=== PATIENT | male | born 1955 | race Two or more races ===

== ENCOUNTER 2017-12-02 11:25 | Outpatient (CLI) | payer MEDICARE | END 2017-12-02 11:26 | disposition EMS.NT | LOC: EMS 11:25 | PROVIDERS: ATTEND Surgery | DX: R53.1 Weakness (principal) ==

== ENCOUNTER 2019-04-16 09:44 | Outpatient (CLI) | payer MEDICARE ==
--- NOTE | 2019-04-16 11:27 | XRAY Report ---
Reason: OTHER NONSPECIFIC ABNORMAL FINDING OF LUNG FIELD Procedure Date: 04/16/2019 Accession Number: [id number] / [id number] Procedure: XRN - Chest 2 View X-Ray CPT Code: 31708 FULL RESULT: EXAM: CHEST RADIOGRAPHY EXAM DATE: 04/16/2019 10:00 AM. CLINICAL HISTORY: Other nonspecific abnormal finding of lung field. COMPARISON: 11/21/2015 12:49 PM. TECHNIQUE: 2 views. FINDINGS: Lungs/Pleura: The prior pleural-based patchy opacity in the lateral right upper lobe and the masslike enlarged right upper lobe pulmonary hilum have been significantly decreased with small residual pleural based patchy opacity. There is a new small right pleural effusion. No new focal opacities evident. No left pleural effusion. No pneumothorax. Mediastinum: Heart and mediastinal contours are unremarkable. Other: None. IMPRESSION: 1. Interval significant decrease in size of the right upper lobe patchy opacity and the enlarged right upper pulmonary hilum. 2. New small right pleural effusion without new pulmonary opacity. RADIA
== END 2019-04-16 09:45 | disposition home or self-care (01) ==
LOC: DI.N 09:44
PROVIDERS: ATTEND Internal Medicine
DX: R91.8 Other nonspecific abnormal finding of lung field (principal); J90 Pleural effusion, not elsewhere classified
CPT/HCPCS: 71046

== ENCOUNTER 2019-06-13 14:24 | Outpatient (CLI) | payer MEDICARE, MEDICAID ==
--- NOTE | 2019-06-13 14:58 | XRAY Report ---
Reason: CHEST PAIN, UNSPECIFIED Procedure Date: 06/13/2019 Accession Number: [id number] / [id number] Procedure: XR - Chest 2 View X-Ray CPT Code: 63889 FULL RESULT: EXAM: CHEST RADIOGRAPHY EXAM DATE: 06/13/2019 02:48 PM. CLINICAL HISTORY: CHEST PAIN, UNSPECIFIED. COMPARISON: CHEST 2 VIEW 04/16/2019 10:00 AM. TECHNIQUE: 2 views. FINDINGS: Lungs/Pleura: Non-resolving peripheral consolidative opacity in right upper hemithorax with associated volume loss. There is slight suggestion that there is involvement of overlying ribs. A malignancy with invasion into the ribs is not completely excluded. Further evaluation is recommended on a contrast-enhanced CT chest. Mediastinum: Heart and mediastinal contours are unremarkable. Other: None. IMPRESSION: Non-resolving peripheral consolidative opacity in right upper hemithorax with associated volume loss. Suggestion of involvement of overlying ribs. A malignancy with invasion into the ribs is not completely excluded. Further evaluation is recommended on a contrast-enhanced CT chest. RADIA
== END 2019-06-13 14:25 | disposition home or self-care (01) ==
LOC: DI 14:24
PROVIDERS: ATTEND Family Medicine
DX: R07.9 Chest pain, unspecified (principal); R91.8 Other nonspecific abnormal finding of lung field
CPT/HCPCS: 71046

== ENCOUNTER 2019-07-13 18:41 | Outpatient (CLI) | payer MEDICARE, MEDICAID | END 2019-07-13 18:42 | disposition critical access hospital (66) | LOC: EMS 18:41 | PROVIDERS: ATTEND Surgery | DX: M54.9 Dorsalgia, unspecified (principal); R20.0 Anesthesia of skin; R07.9 Chest pain, unspecified; R50.9 Fever, unspecified | CPT/HCPCS: A0425; A0429 ==

== ENCOUNTER 2019-07-13 18:55 | Emergency (ER) | payer MEDICARE, MEDICAID ==
--- NOTE | 2019-07-13 19:01 | ED Physician Documentation ---
History of Present Illness - Stated complaint Stated Complaint: dehydrated - History obtained from History obtained from: Patient - Additonal information Additional information: Patient is a 63-year-old male with history of COPD presenting from home with worsening shortness of breath, productive cough without fever. Patient does not normally require oxygen at home. Patient has an appointment with his fiber heel piece shaper tomorrow given his worsening and persistent lung issues with a concern for possible carcinoma. Patient denies chest pain, abdominal pain, nausea, vomiting or diarrhea, but admits to urinary incontinence. Patient is unsure of all of his home medications, but largely feels they are related to pain control. No other improving or worsening factors noted. 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 and also for right shoulder pain) - Past Surgical History Past Surgical History: Yes Ortho: Knee replacement, Rotator cuff repair - Present Medications Home Medications: Ambulatory Orders Medication Instructions Recorded Confirmed ALPRAZolam [Xanax] 1 mg PO TID 11/21/15 11/29/15 Fluoxetine HCl 10 mg PO QPM 11/21/15 11/29/15 Fluoxetine HCl 20 mg PO DAILY 11/21/15 11/29/15 Morphine ER 15 mg PO BID PRN 11/21/15 11/29/15 oxyCODONE/ACET 5/325 [Percocet 5 5 - 325 mg PO .Q6-8HRS PRN 11/21/15 11/29/15 mg/325 mg] Aspirin [Aspir 81] 81 mg PO DAILY 11/29/15 11/29/15 Gabapentin 300 mg PO BID #40 capsule 06/26/19 Naproxen 375 mg PO BID #20 tablet 06/26/19 dexAMETHasone [Decadron] 4 mg PO DAILY #10 tablet 06/26/19 Levofloxacin [Levaquin] 750 mg PO DAILY #4 tablet 07/13/19 - Allergies Allergies/Adverse Reactions: Allergies Allergy/AdvReac Type Severity Reaction Status Date / Time No Known Drug Allergies Allergy Verified 07/13/19 19:01 - Social History Does the pt smoke?: Yes Smoking Status: Current every day smoker Does the pt drink ETOH?: No Does the pt have substance abuse?: No - POLST Patient has POLST: No PD ED PE NORMAL - Vitals Vital signs reviewed: Yes - General General: Alert and oriented X 3, No acute distress. No: Well developed/nourished (Chronically ill-appearing, thin, frail) - HEENT HEENT: Atraumatic, Moist mucous membranes - Neck Neck: Supple, no meningeal sign - Cardiac Cardiac: RRR, No murmur - Respiratory Respiratory: No respiratory distress. No: Clear bilaterally (Coarse breath sounds and poor air movement throughout without wheezing) - Abdomen Abdomen: Soft, Non tender, Non distended - Derm Derm: Normal color, Warm and dry, No rash - Extremities Extremities: No deformity, No tenderness to palpate. No: No edema (Trace non pitting) - Neuro Neuro: Alert and oriented X 3, No motor deficit, No sensory deficit - Psych Psych: Normal mood, Normal affect Results - Vitals Vitals: Vital Signs - 24 hr 07/13/19 07/13/19 07/13/19 18:58 19:05 20:06 Temperature 37.2 C 37.6 C H Heart Rate 105 H 108 H 107 H Respiratory 20 26 H 14 Rate Blood Pressure 105/72 111/72 O2 Saturation 92 95 07/13/19 21:07 Temperature Heart Rate 114 H Respiratory 22 Rate Blood Pressure 118/72 O2 Saturation 94 Oxygen O2 Source [] Room air O2 Source [] Room air O2 Source Room air Oxygen Flow Rate 2 - EKG (time done) 1939 Rate: Rate (enter#) (101) Rhythm: NSR Ischemia: Non specific changes - Labs Labs: Laboratory Tests 07/13/19 07/13/19 07/13/19 19:27 19:27 19:27 WBC 18.3 H RBC 3.39 L Hgb 10.2 L Hct 31.5 L MCV 92.9 MCH 30.1 MCHC 32.4 RDW 14.6 Plt Count 272 MPV 9.7 Neut # (Auto) 13.9 H Lymph # (Auto) 1.1 L [place] # (Auto) 1.2 H Eos # (Auto) 1.8 H Baso # (Auto) 0.1 Absolute Nucleated RBC 0.00 Band Neuts % (Manual) Not Reportable Abnorm Lymph % (Manual) Not Reportable Nucleated RBC % 0.0 Neutrophils # (Manual) Not Reportable Lymphocytes # (Manual) Not Reportable Monocytes # (Manual) Not Reportable Eosinophils # (Manual) Not Reportable Basophils # (Manual) Not Reportable Differential Comment MANUAL=AUTO DIFF Manual Slide Review Indicated Platelet Estimate NORMAL (130-450,000) Platelet Morphology NORMAL APPEARANCE RBC Morph Micro Appear NORMAL APPEARANCE PT 14.5 H INR 1.3 H APTT 32.3 VBG pH VBG pCO2 VBG pO2 VBG HCO3 VBG Total CO2 VBG O2 Saturation VBG Base Excess Sodium 136 Potassium 4.0 Chloride 101 Carbon Dioxide 25 Anion Gap 10.0 BUN 13 Creatinine 0.8 Estimated GFR (MDRD) 98 Glucose 130 H Calcium 8.3 L Total Bilirubin 0.4 AST 68 H ALT 28 Alkaline Phosphatase 64 Troponin I High Sens B-Natriuretic Peptide Total Protein 5.8 L Albumin 2.4 L Globulin 3.4 Albumin/Globulin Ratio 0.7 L Lipase 22 Urine Color Urine Clarity Urine pH Ur Specific [place] Urine Protein Urine Glucose (UA) Urine Ketones Urine Occult Blood Urine Nitrite Urine Bilirubin Urine Urobilinogen Ur Leukocyte Esterase Urine RBC Urine WBC Ur Squamous Epith Cells Urine Bacteria Ur Microscopic Review Urine Culture Comments 07/13/19 07/13/19 07/13/19 19:27 19:27 19:27 WBC RBC Hgb Hct MCV MCH MCHC RDW Plt Count MPV Neut # (Auto) Lymph # (Auto) [place] # (Auto) Eos # (Auto) Baso # (Auto) Absolute Nucleated RBC Band Neuts % (Manual) Abnorm Lymph % (Manual) Nucleated RBC % Neutrophils # (Manual) Lymphocytes # (Manual) Monocytes # (Manual) Eosinophils # (Manual) Basophils # (Manual) Differential Comment Manual Slide Review Platelet Estimate Platelet Morphology RBC Morph Micro Appear PT INR APTT VBG pH 7.393 VBG pCO2 44.4 VBG pO2 24.5 L VBG HCO3 26.5 VBG Total CO2 27.8 VBG O2 Saturation 45.9 L VBG Base Excess 1.3 Sodium Potassium Chloride Carbon Dioxide Anion Gap BUN Creatinine Estimated GFR (MDRD) Glucose Calcium Total Bilirubin AST ALT Alkaline Phosphatase Troponin I High Sens 9.8 B-Natriuretic Peptide 223 H Total Protein Albumin Globulin Albumin/Globulin Ratio Lipase Urine Color Urine Clarity Urine pH Ur Specific [place] Urine Protein Urine Glucose (UA) Urine Ketones Urine Occult Blood Urine Nitrite Urine Bilirubin Urine Urobilinogen Ur Leukocyte Esterase Urine RBC Urine WBC Ur Squamous Epith Cells Urine Bacteria Ur Microscopic Review Urine Culture Comments 07/13/19 22:03 WBC RBC Hgb Hct MCV MCH MCHC RDW Plt Count MPV Neut # (Auto) Lymph # (Auto) [place] # (Auto) Eos # (Auto) Baso # (Auto) Absolute Nucleated RBC Band Neuts % (Manual) Abnorm Lymph % (Manual) Nucleated RBC % Neutrophils # (Manual) Lymphocytes # (Manual) Monocytes # (Manual) Eosinophils # (Manual) Basophils # (Manual) Differential Comment Manual Slide Review Platelet Estimate Platelet Morphology RBC Morph Micro Appear PT INR APTT VBG pH VBG pCO2 VBG pO2 VBG HCO3 VBG Total CO2 VBG O2 Saturation VBG Base Excess Sodium Potassium Chloride Carbon Dioxide Anion Gap BUN Creatinine Estimated GFR (MDRD) Glucose Calcium Total Bilirubin AST ALT Alkaline Phosphatase Troponin I High Sens B-Natriuretic Peptide Total Protein Albumin Globulin Albumin/Globulin Ratio Lipase Urine Color YELLOW Urine Clarity CLEAR Urine pH 5.0 Ur Specific [place] 1.025 Urine Protein TRACE Urine Glucose (UA) NEGATIVE Urine Ketones NEGATIVE Urine Occult Blood LARGE H Urine Nitrite NEGATIVE Urine Bilirubin NEGATIVE Urine Urobilinogen 0.2 (NORMAL) Ur Leukocyte Esterase NEGATIVE Urine RBC 0-5 Urine WBC 0-3 Ur Squamous Epith Cells RARE Squamous Urine Bacteria None Seen Ur Microscopic Review INDICATED Urine Culture Comments NOT INDICATED PD MEDICAL DECISION MAKING - ED course Complexity details: reviewed results, re-evaluated patient, considered differential, d/w patient ED course: Patient presenting with worsening shortness of breath and unfortunately reports likely lung carcinoma diagnosis for which he is seeing his fiber heel piece shaper alvina davis. Patient does not normally require oxygen at home but arrives using oxygen. Patient is able to be weaned off of oxygen while in the ED.Obtained which did indicate likely malignancy and similar to previous, but slightly different in the fact of concerns for new opacities possibly representing pneumonia. Given patient's complaints and exam, feel appropriate to treat as pneumonia and patient received first dose of antibiotic in the ED. Screening lab work also reflected significant leukocytosis which could beReflective of infection or malignancy. Remainder of screening lab work slightly abnormal but reflective of patient's underlying comorbidities. Urinalysis also obtained given patient's report of new incontinence but did not reflect infection. Unclear as to source of incontinence at this time, but have low suspicion for emergent causes such as infection, obstruction, or cauda equina, but considered. At this time, feel best to discharge patient home on oral antibiotics so that he may attend pulmonology appointment tomorrow. Patient also amenable to this plan and is understanding of emilie's work-up and findings. Also discussed strict return precautions. Patient voiced understanding is comfortable with discharge plan. Departure - Departure Disposition: 01 Home, Self Care Clinical Impression: Pneumonia Condition: Good Instructions: ED Pneumonia Adult Follow-Up: Bibiana Hooks MD [Primary Care Provider] - Tomorrow Prescriptions: Levofloxacin [Levaquin] 750 mg PO DAILY #4 tablet Comments: Please continue all home medications as previously instructed and start antibiotics as prescribed tomorrow as you received your first dose in the ED emilie. Please follow-up with your fiber heel piece shaper as scheduled tomorrow, as well as your primary care physician. Return to ED sooner if experience worsening symptoms or have other concerns.
[2019-07-13] MEDS ORDERED: IPRATROPIUM/ALBUTEROL 3 ML NEB INH STA (19:09)
[2019-07-13 19:37] LABS: BASOPHILS % (AUTO) 0.6 %; EOSINOPHILS % (AUTO) 9.7 %
[2019-07-13 19:40] LABS: BASOPHILS # (AUTO) 0.1 10^3/uL (0.0-0.1); EOSINOPHILS # (AUTO) 1.8 10^3/uL (0.0-0.7); HGB - HEMOGLOBIN 10.2 g/dL (14.0-18.0); LYMPHOCYTES # (AUTO) 1.1 10^3/uL (1.5-3.5); LYMPHOCYTES % (AUTO) 6.1 %; MEAN CORPUSCULAR HEMOGLOBIN 30.1 pg (27.0-31.0); MEAN CORPUSCULAR HGB CONC 32.4 g/dL (32.0-36.0); MEAN CORPUSCULAR VOLUME 92.9 fL (80.0-94.0); MEAN PLATELET VOLUME 9.7 fL (7.4-11.4); MONOCYTES # (AUTO) 1.2 10^3/uL (0.0-1.0); MONOCYTES % (AUTO) 6.8 %; NEUTROPHILS # (AUTO) 13.9 10^3/uL (1.5-6.6); PLT - PLATELET COUNT 272 10^3/uL (130-450); RED BLOOD COUNT 3.39 10^6/uL (4.70-6.10); RED CELL DISTRIBUTION WIDTH 14.6 % (12.0-15.0); WHITE BLOOD COUNT 18.3 x10^3/uL (4.8-10.8)
[2019-07-13 19:42] LABS: INR 1.3 (0.8-1.2); PT - PROTHROMBIN TIME 14.5 secs (9.9-12.6)
[2019-07-13 19:43] LABS: VBG PCO2 44.4 mmHg (41-51); VBG PH 7.393 (7.31-7.41); VBG PO2 24.5 mmHg (25-47)
[2019-07-13 19:44] LABS: VBG BASE EXCESS 1.3 mmol/L (-2 - +2); VBG TOTAL CO2 27.8 mmol/L (24-29)
[2019-07-13 19:49] LABS: PARTIAL THROMBOPLASTIN TIME 32.3 secs (24.9-33.3)
[2019-07-13 19:55] LABS: ALBUMIN 2.4 g/dL (3.2-5.5); ALBUMIN/GLOBULIN RATIO 0.7 (1.0-2.2); BILIRUBIN,TOTAL 0.4 mg/dL (0.2-1.0); CALCIUM 8.3 mg/dL (8.5-10.3); CREATININE 0.8 mg/dL (0.6-1.2); TOTAL PROTEIN 5.8 g/dL (6.7-8.2)
[2019-07-13 20:07] LABS: DIFFERENTIAL COMMENT MANUAL=AUTO DIFF; PLATELET ESTIMATE, MANUAL NORMAL (130-450,000) (NORMAL); PLATELET MORPHOLOGY NORMAL APPEARANCE (NORMAL); RBC MORPHOLOGY (MULTIPLE) NORMAL APPEARANCE (NORMAL)
[2019-07-13 21:08] VITALS: BP 118/72
--- NOTE | 2019-07-13 21:56 | XRAY Report ---
Reason: cough Procedure Date: 07/13/2019 Accession Number: [id number] / [id number] Procedure: XR - Chest 2 View X-Ray CPT Code: 74534 FULL RESULT: EXAM: CHEST RADIOGRAPHY EXAM DATE: 07/13/2019 08:05 PM. CLINICAL HISTORY: Cough. COMPARISON: CHEST 2 VIEW 06/13/2019 2:40 PM CHEST W/ 06/26/2019 2:39 AM. TECHNIQUE: 2 views. FINDINGS: Cardiac leads overlie the chest. Heart size is normal. Redemonstrated irregular opacities in the lateral right upper lobe and right lower lobe. Mild patchy opacities in the left lower lobe. No definite pleural effusions or pneumothoraces. The bones are osteopenic. IMPRESSION: Redemonstration of irregular opacities in the lateral right upper lobe, which is concerning for malignancy. Additional patchy opacities in the lower lobes are indeterminate and could represent atelectasis, pneumonia, aspiration, or malignancy. RADIA
[2019-07-13] MEDS ORDERED: levoFLOXacin 250 MG TABLET PO STA (22:13)
[2019-07-13 22:49] LABS: BILIRUBIN,URINE NEGATIVE (NEGATIVE); GLUCOSE, URINE (UA) NEGATIVE (NEGATIVE); KETONES,URINE (UA) NEGATIVE (NEGATIVE); LEUKOCYTE ESTERASE, URINE NEGATIVE (NEGATIVE); NITRITE,URINE NEGATIVE (NEGATIVE); OCCULT BLOOD,URINE LARGE (NEGATIVE); PROTEIN,URINE TRACE mg/dL (NEGATIVE); UROBILINOGEN,URINE 0.2 (NORMAL) E.U./dL (NORMAL)
[2019-07-13 22:53] LABS: CLARITY,URINE CLEAR (CLEAR)
[2019-07-13 23:03] LABS: BACTERIA,URINE None Seen /HPF (None Seen); RBC,URINE 0-5 /HPF (0-5); SQUAMOUS EPITHELIAL CELL,UR RARE Squamous (<= Few)
== END 2019-07-14 00:55 | disposition home or self-care (01) ==
LOC: EDUNIT# → ED 18:55
DX: J18.9 Pneumonia, unspecified organism (principal); R32 Unspecified urinary incontinence; R91.8 Other nonspecific abnormal finding of lung field; F17.200 Nicotine dependence, unspecified, uncomplicated
CPT/HCPCS: 36415; 71046; 80053; 81001; 82803; 83690; 83880; 84484; 85025; 85610; 85730; 87040; 93005; 94640; 94664; 99283; 99284; A9270; 81003; 87086

== ENCOUNTER 2019-07-17 18:35 | Emergency (ER) | payer MEDICARE, MEDICAID ==
--- NOTE | 2019-07-17 19:03 | ED Physician Documentation ---
PD HPI FOCAL NEURO - Stated complaint Stated Complaint: NUMB FROM CHEST DOWN/OOZING LT FOOT WOUND - Chief complaint Chief Complaint: Neuro - History obtained from History obtained from: Patient - History of Present Illness Timing - onset: How many weeks ago (The patient had onset of numbness around the the chest abdomen legs about a week ago progressing to weakness of the legs with difficulty walking when seen in the ER several days ago. He states he has been unable to move his legs or walk and needs to use his arms to even lift his legs the past several days. He has continued with some pain in his back in the thoracic area and mid scapular. He has had some lower back pain as well. He denies any fall or injury.) Timing - duration: Weeks Timing - details: Gradual onset (over 1-2 weeks) Severity of deficit: Severe Weakness: Leg, Foot, Right, Left Numbness: Leg, Foot, Right, Left Associated symptoms: No: Headache, Nausea / vomiting, Fall, Head injury Contributing factors: negative: Anticoagulated, Atrial fibrillation Baseline status: positive: A&OX3, ambulatory, indep (a month ago) Similar symptoms before: Has not had sx before Recently seen: Emergency Dept (He was seen in the emergency department several days ago with some trouble breathing and the pain in his back. He had a chest x-ray which showed the previously demonstrated lung lesions and was given antibiotics for possible pneumonia. He was to see a stallion keeper this coming week for biopsy of his lung lesion but is now developed weakness and numbness in his legs and trunk.), Other (He was seen in the emergency department after initially being seen in the office in mid June with cough and trouble breathing and some upper back pain. He had a chest x-ray showed a lung lesion and was treated for pneumonia. He was not improved and came to the ER at which point a CT scan demonstrated a lung apparent a cancerous lesion with invasion into the chest wall and also a likely pathologic fracture at T4 without any cord impingement. He was to see a stallion keeper that was a consult scheduled by his primary care. This was presumed to have been scheduled for the week following that visit at the end of June. However it is not until this coming week that he is seeing the specialist.) Review of Systems Constitutional: denies: Fever Nose: denies: Rhinorrhea / runny nose, Congestion Throat: denies: Sore throat Cardiac: denies: Chest pain / pressure, Palpitations Respiratory: reports: Dyspnea, Cough. denies: Wheezing GI: denies: Abdominal Pain, Nausea, Vomiting, Diarrhea Skin: reports: Lesions (large blisters top of left foot for several days.) Musculoskeletal: reports: Back pain. denies: Neck pain Neurologic: reports: Focal weakness (both legs), Numbness (from nipple level down both sides). 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) - Past Surgical History Past Surgical History: Yes Ortho: Knee replacement, Rotator cuff repair - Present Medications Home Medications: Ambulatory Orders Medication Instructions Recorded Confirmed ALPRAZolam [Xanax] 1 mg PO TID 11/21/15 07/17/19 Fluoxetine HCl 10 mg PO QPM 11/21/15 07/17/19 Fluoxetine HCl 20 mg PO DAILY 11/21/15 07/17/19 Morphine ER 15 mg PO BID PRN 11/21/15 07/17/19 oxyCODONE/ACET 5/325 [Percocet 5 5 - 325 mg PO .Q6-8HRS PRN 11/21/15 07/17/19 mg/325 mg] Aspirin [Aspir 81] 81 mg PO DAILY 11/29/15 07/17/19 Gabapentin 300 mg PO BID #40 capsule 06/26/19 07/17/19 Albuterol Sulfate [Proair Hfa 1 - 2 puffs INH Q4H PRN 07/17/19 07/17/19 Inhaler] Cyclobenzaprine [Flexeril] 10 mg PO TID PRN 07/17/19 07/17/19 - Allergies Allergies/Adverse Reactions: Allergies Allergy/AdvReac Type Severity Reaction Status Date / Time No Known Drug Allergies Allergy Verified 07/17/19 18:54 - Social History Does the pt smoke?: Yes Smoking Status: Current every day smoker Does the pt drink ETOH?: No Does the pt have substance abuse?: No - POLST Patient has POLST: No PD ED PE NORMAL - Vitals Vital signs reviewed: Yes - General General: Alert and oriented X 3, Well developed/nourished - HEENT HEENT: Moist mucous membranes, Pharynx benign - Neck Neck: Supple, no meningeal sign, No adenopathy - Cardiac Cardiac: RRR, No murmur - Respiratory Respiratory: Clear bilaterally - Abdomen Abdomen: Soft, Non tender. No: Normal bowel sounds (diminished) - Back Back: No CVA TTP - Derm Derm: Warm and dry, Other (The left foot shows some bullous changes with some peeled skin on the dorsum. There is no purulence. There is minimal redness at the base. I did unroofed 1 of the bullae and obtained a culture of the clear fluid.) - Neuro Neuro: Alert and oriented X 3, liner roll changer 2-12 intact, Other (The patient has significantly decreased sensation to touch and can minimally distinguish sharp dull from the nipple line anteriorly and the T4 level posteriorly on down including the abdomen and hips. He has decreased sensation to just minimally distinguishing touch and pinprick in both lower extremities diffusely. He has no strength at all in either leg and has inability to lift either leg and no real movement of the legs on their own. He has minimally present knee reflexes on both legs upper extremity exam is normal strength and sensory.) Eye Opening: Spontaneous Motor: Obeys Commands Verbal: Oriented GCS Score: 15 - Psych Psych: No: Normal mood (He does seem somewhat depressed but is still pleasant and cooperative.) Results - Vitals Vitals: Vital Signs - 24 hr 07/17/19 07/17/19 07/17/19 18:47 19:24 19:54 Temperature 36.7 C Heart Rate 99 96 95 Respiratory 22 22 Rate Blood Pressure 99/70 105/72 104/84 H O2 Saturation 93 94 07/17/19 07/17/19 07/17/19 20:00 20:30 21:22 Temperature Heart Rate 100 98 Respiratory 24 Rate Blood Pressure 104/84 H 106/73 102/73 O2 Saturation 92 07/17/19 07/17/19 07/17/19 21:30 22:00 22:30 Temperature 36.5 C Heart Rate 99 101 H 95 Respiratory 26 H Rate Blood Pressure 104/70 103/77 104/70 O2 Saturation 97 89 L 87 L 07/17/19 07/17/19 23:00 23:30 Temperature Heart Rate 101 H 104 H Respiratory 20 Rate Blood Pressure 109/69 111/64 O2 Saturation 100 100 Oxygen O2 Source [With Activity] Room air O2 Source [Without Activity] Room air O2 Source Room air Oxygen Flow Rate 1 - Labs Labs: Microbiology 07/17/19 19:41 Wound Culture - Preliminary Foot - Left Laboratory Tests 07/17/19 07/17/19 07/17/19 20:09 20:09 20:09 WBC 19.4 H RBC 3.45 L Hgb 10.2 L Hct 31.1 L MCV 90.1 MCH 29.6 MCHC 32.8 RDW 14.4 Plt Count 320 MPV 10.1 Neut # (Auto) Not Reportable Lymph # (Auto) Not Reportable [place] # (Auto) Not Reportable Eos # (Auto) Not Reportable Baso # (Auto) Not Reportable Absolute Nucleated RBC Not Reportable Total Counted 100 Band Neuts % (Manual) 3 Abnorm Lymph % (Manual) 0 Nucleated RBC % Not Reportable Neutrophils # (Manual) 16.1 H Lymphocytes # (Manual) 1.7 Monocytes # (Manual) 0.2 Eosinophils # (Manual) 1.2 H Basophils # (Manual) 0.2 H Differential Comment MANUAL DIFFERENTIAL Manual Slide Review Indicated Platelet Estimate NORMAL (130-450,000) Platelet Morphology NORMAL APPEARANCE RBC Morph Micro Appear NORMAL APPEARANCE ESR Sodium 136 Potassium 3.8 Chloride 98 L Carbon Dioxide 25 Anion Gap 13.0 BUN 17 Creatinine 0.8 Estimated GFR (MDRD) 98 Glucose 102 H Lactic Acid 1.3 Calcium 8.6 Magnesium 1.9 Total Bilirubin 0.2 AST 32 ALT 26 Alkaline Phosphatase 70 Total Protein 6.2 L Albumin 2.5 L Globulin 3.7 Albumin/Globulin Ratio 0.7 L Lipase 31 07/17/19 20:09 WBC RBC Hgb Hct MCV MCH MCHC RDW Plt Count MPV Neut # (Auto) Lymph # (Auto) [place] # (Auto) Eos # (Auto) Baso # (Auto) Absolute Nucleated RBC Total Counted Band Neuts % (Manual) Abnorm Lymph % (Manual) Nucleated RBC % Neutrophils # (Manual) Lymphocytes # (Manual) Monocytes # (Manual) Eosinophils # (Manual) Basophils # (Manual) Differential Comment Manual Slide Review Platelet Estimate Platelet Morphology RBC Morph Micro Appear ESR 75 H Sodium Potassium Chloride Carbon Dioxide Anion Gap BUN Creatinine Estimated GFR (MDRD) Glucose Lactic Acid Calcium Magnesium Total Bilirubin AST ALT Alkaline Phosphatase Total Protein Albumin Globulin Albumin/Globulin Ratio Lipase - Rads (name of study) Chest and lumbar CT scans with contrast Radiology: Prelim report reviewed, Discussed with rads (The patient has the prior known lung mass with metastases in the lung and T4 fracture. The size of the lung mass has increased since June 29. There is now also a apparent new soft tissue mass at the T5 level in the spine. There is also a new L4 fracture with some retropulsion of segments impinging on the canal.) PD MEDICAL DECISION MAKING - ED course Complexity details: reviewed results, re-evaluated patient (I talked with the patient about transfer to the for specialized care of oncology pulmonology and spine surgery and this is the best placement for him given his current acute processes. He is talking on the phone to his children.), considered differential (The patient is having paresis and decreased sensation in the legs and also decreased sensation in the chest wall from the nipples down. This would be concerning for T4 lesion and also lumbar lesion. He has had previous known lung cancer and a T4 compression fracture. We will repeat imaging to look for potential new lesions. Given the elevated white count from a few days ago, I would also be concerned for infections or abscesses as well. We will get repeat lab tests. He is given IV fluids and will initiate some antibiotics.), d/w patient, d/w animal nutrition consultant (I talked with the transfer center at and talked with the oncology attending and then referred to the spine surgeon a attending. 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
[2019-07-17] MEDS ORDERED: SODIUM CHLORIDE 0.9% 1,000 ML IV ONE (19:49)
[2019-07-17] MEDS ORDERED: HYDROmorphone 1 MG/ML CARPUJECT IVP STA ×2 (19:51→20:48)
[2019-07-17] MEDS ORDERED: cefTRIAXone 1 GM VIAL IVP STA (19:51)
[2019-07-17 20:14] LABS: BASOPHILS % (AUTO) 0.4 %; EOSINOPHILS % (AUTO) 13.7 %; HGB - HEMOGLOBIN 10.2 g/dL (14.0-18.0); LYMPHOCYTES % (AUTO) 9.3 %; MEAN CORPUSCULAR HEMOGLOBIN 29.6 pg (27.0-31.0); MEAN CORPUSCULAR HGB CONC 32.8 g/dL (32.0-36.0); MEAN CORPUSCULAR VOLUME 90.1 fL (80.0-94.0); MEAN PLATELET VOLUME 10.1 fL (7.4-11.4); MONOCYTES % (AUTO) 5.5 %; NEUTROPHILS % (AUTO) 70.4 %; PLT - PLATELET COUNT 320 10^3/uL (130-450); RED BLOOD COUNT 3.45 10^6/uL (4.70-6.10); RED CELL DISTRIBUTION WIDTH 14.4 % (12.0-15.0); WHITE BLOOD COUNT 19.4 x10^3/uL (4.8-10.8)
[2019-07-17 20:21] LABS: ABNORMAL LYMPHS % (MANUAL) 0 %
[2019-07-17 20:27] LABS: ALBUMIN 2.5 g/dL (3.2-5.5); ALBUMIN/GLOBULIN RATIO 0.7 (1.0-2.2); BILIRUBIN,TOTAL 0.2 mg/dL (0.2-1.0); CALCIUM 8.6 mg/dL (8.5-10.3); CREATININE 0.8 mg/dL (0.6-1.2); MAGNESIUM 1.9 mg/dL (1.7-2.8); TOTAL PROTEIN 6.2 g/dL (6.7-8.2)
[2019-07-17 20:37] LABS: BAND NEUTROPHILS % (MANUAL) 3 %; BASOPHILS # (MANUAL) 0.2 10^3/uL (0-0.1); BASOPHILS % (MANUAL) 1 %; EOSINOPHILS # (MANUAL) 1.2 10^3/uL (0-0.7); LYMPHOCYTES # (MANUAL) 1.7 10^3/uL (1.5-3.5); LYMPHOCYTES % (MANUAL) 9 %; MONOCYTES # (MANUAL) 0.2 10^3/uL (0.0-1.0)
[2019-07-17 20:38] LABS: PLATELET ESTIMATE, MANUAL NORMAL (130-450,000) (NORMAL); PLATELET MORPHOLOGY NORMAL APPEARANCE (NORMAL); RBC MORPHOLOGY (MULTIPLE) NORMAL APPEARANCE (NORMAL)
[2019-07-17 20:39] LABS: DIFFERENTIAL COMMENT MANUAL DIFFERENTIAL
[2019-07-17] MEDS ORDERED: IOVERSOL 320 100 ML VIAL IVP ONE ×2 (20:49→21:35)
[2019-07-17] MEDS ORDERED: VANCOMYCIN INJ 1.25 GM in SODIUM CHLORIDE 0.9% 250 ML IV STA (21:30)
[2019-07-17] MEDS ORDERED: CEFEPIME 2 GM in SODIUM CHLORIDE 0.9% MINIBAG 100 ML IV STA (21:30)
--- NOTE | 2019-07-17 22:00 | CT Report ---
Reason: numbness breasts down; leg progressive weakness Procedure Date: 07/17/2019 Accession Number: [id number] / [id number] Procedure: CT - LUMBAR SPINE W CPT Code: FULL RESULT: EXAM: CT LUMBAR SPINE WITH CONTRAST EXAM DATE: 07/17/2019 09:02 PM. CLINICAL HISTORY: Lower extremity numbness. COMPARISONS: ABDOMEN/PELVIS W06/26/2019 2:39 AM CHEST W/ 07/17/2019 9:02 PM. TECHNIQUE: Thin-section axial images were acquired of the lumbar spine from T12 to S1 after administration of intravenous contrast. Post-processing: Coronal and sagittal reformats. Other: None. IV contrast: 100 ML Omnipaque 350. In accordance with CT protocol optimization, one or more of the following dose reduction techniques were utilized for this exam: automated exposure control, adjustment of mA and/or KV based on patient size, or use of iterative reconstructive technique. FINDINGS: Alignment: No scoliosis or spondylolisthesis. Bones: Five [id number] lumbar vertebral bodies are present. There is a new 2 column burst fracture at L4 with moderate vertebral height loss. There is approximately 3 mm retropulsion of the bony fragments. There is soft tissue attenuation change in the epidural and immediate paravertebral space in combination with bony retropulsion resulting in high-grade central canal narrowing (image 58/6 and image 88/4). A discrete lytic or blastic lesion is not clearly delineated, however, surrounding soft tissue attenuations are suspicious for potential pathologic injury. Disk Levels/Facets: Minor degenerative changes are seen in the lumbar spine. The remainder bony spinal canal levels are relatively patent. Spinal Canal: As above, there is suggestion of high-grade spinal canal stenosis at the mid L4 level related to combination of retropulsion and soft tissue attenuation in the epidural space. Musculature: Small 1.8 x 1.1 x 1.3 cm cystic nodule with some peripheral enhancement is seen in the left psoas muscle (image 100/4). Other: Visualized remainder retroperitoneal structures are notable for suspicious nodule in the left adrenal gland measuring 3.0 cm. A markedly distended bladder is also seen. IMPRESSION: 1. New 2 column burst fracture at L4 causing mild retropulsion of the bony fragments. Suspicious soft tissue attenuation in the adjacent epidural and paravertebral space raises suspicion for pathologic injury. MRI with and without contrast could be helpful in further evaluation. 2. Combination of retropulsion and soft tissue attenuation in the epidural space appears to cause high-grade spinal canal stenosis at the mid L4 level. This could be further evaluated with MRI. 3. Small 1.8 x 1.1 x 1.3 cm complex nodule in the adjacent left psoas muscle suspicious for tumor infiltration. Left adrenal mass also noted. 4. Markedly distended bladder concerning for urinary retention. Unclear if this is related to underlying acute spine pathology. Consider bladder decompression. [facility] The call report notification system was initiated by Dr. Tammy Stringer at 09:48 PM on 07/17/2019. The above call report findings were discussed with Dion Cook by Dr. Tammy Stringer at 09:59 PM on 07/17/2019.
--- NOTE | 2019-07-17 22:04 | CT Report ---
Reason: progressive leg weakness; numb breasts down Procedure Date: 07/17/2019 Accession Number: [id number] / [id number] Procedure: CT - CHEST W CPT Code: FULL RESULT: EXAM: CT CHEST EXAM DATE: 07/17/2019 09:02 PM. CLINICAL HISTORY: Progressive leg weakness. Numbness from the breasts down. COMPARISONS: CHEST W/ 06/26/2019. TECHNIQUE: Routine helical CT imaging was performed through the chest. IV contrast: None. Reconstructions: Coronal and sagittal. In accordance with CT protocol optimization, one or more of the following dose reduction techniques were utilized for this exam: automated exposure control, adjustment of mA and/or KV based on patient size, or use of iterative reconstructive technique. FINDINGS: Lungs/Pleura: Malignant consolidation within the right upper lobe laterally is noted, with adjacent chest wall invasion as well as rib destruction. This has increased in size from recent prior study. For instance, in the transverse dimension, the area of consolidation now measures 4.8 cm (image 26 series 3) versus 3.9 cm previously. Associated bilobed fluid collection within the right major fissure is noted, probably trapped ascites fluid. However, the pleural lining surrounding this collection demonstrates a slightly thickened nodular appearance, indicating possible pleural metastasis. There is extensive debris within the lower lobe bronchi bilaterally, extending into the distal bronchioles. This may be pooled mucoid secretions and/or aspirated material. There is multifocal moderate to severe airspace disease within the lung bases bilaterally. This has progressed, notably within the left lower lobe from the prior study. Additional areas of pleural nodularity are seen bilaterally, which may be metastatic disease. There is no significant left-sided effusion noted. There is no definite evidence of a pneumothorax on this exam. Mediastinum: A posterior mediastinal soft tissue mass is noted along the right paravertebral location of the spine from T4 through T6. Associated severe compression fracture of T5 vertebral body. No mediastinal lymphadenopathy is evident on this exam. Aorta: Moderate aortic atherosclerosis. Normal caliber aorta. Heart: Normal heart size. No significant pericardial effusion. Thyroid: No definite suspicious thyroid nodule. Chest wall: A large necrotic right axillary lymph node is noted, measuring 3.7 x 2.8 cm. An additional heterogeneous partly necrotic-appearing rounded lesion is seen within the right lateral chest wall musculature, measuring 3.8 x 2.6 cm (image 24 series 3). Asymmetric swelling of the right-sided chest wall muscles noted adjacent to the areas of chest wall invasion by the neoplasm. Bones: Severe compression fracture of T5 vertebral body. Bones are moderate to severely osteopenic. Bony destruction of the thoracic vertebral bodies and costovertebral junctions is seen from T4, T5, and T6. A small central canal mass suspected at T5, image 19 series 3. IMP there is RESSION: 1. Bony metastatic disease and associated osseous destruction are seen extending from T4 through T6. These are slightly progressed from the prior exam. 2. A small central canal soft tissue mass is suspected at T5 , related to the neoplastic process. This could be further assessed with MRI of the thoracic spine without and with contrast, if clinically necessary. 3. Progression of the right upper lobe neoplastic consolidation laterally with progressive adjacent chest wall invasion. Right axillary necrotic lymph node measuring 3.7 x 2.8 cm. Additional heterogeneous low-density collection within the right-sided chest wall musculature measuring 3.8 x 2.6 cm. 4. Extensive bilateral lower lobe airspace disease in a patchy multifocal fashion has progressed, notably within the left lower lobe. This may be aspiration and/or infection. There are filling defects within the lower lobe bronchi bilaterally, which may be mucus secretions, endobronchial spread of tumor, or aspirated material. 5. Pleural nodularity within the right hemithorax, worrisome for pleural metastasis. [facility] The call report notification system was initiated by Dr. Naga Hampton at 10:03 PM on 07/17/2019. The above call report findings were discussed with Dion Cook by Dr. Naga Hampton at 10:09 PM on 07/17/2019.
[2019-07-17] MEDS ORDERED: DEXAMETHASONE 10 MG/ML VIAL IVP STA (22:10)
[2019-07-18] MEDS ORDERED: SODIUM CHLORIDE 0.9% 1,000 ML IV ONE (00:28)
[2019-07-18 01:06] VITALS: BP 91/62
--- NOTE | 2019-07-18 01:33 | ED Physician Documentation ---
ED Addendum - Addendum Addendum: 07/18/19 01:30 Arrangements were made to transfer the patient to [facility] and I discussed this with the patient. He subsequently felt stressed and said he had things to take care of at home. A friend of his was here to talk with him. In he did talk to his 1 of his children in [place] by phone. However he decided that he did not want to be transferred and get further care. I talked with him at length to try to address his concerns. He said he had "things to secure at home and take care of" and declined transfer. At this point we will have him sign out AMA. I do not have a particular treatment plan for him to offer. There is concerns for the lesions and possible infections and involvement of the spinal cord. He had urinary retention so we can keep the Montaño catheter in place if he wishes. Otherwise I have no obvious prescriptions to offer. He is told he is welcome to return any point and we can restart the transfer process.
== END 2019-07-18 02:00 | disposition left against medical advice (07) ==
LOC: ED 18:35
DX: C79.49 Secondary malignant neoplasm of other parts of nervous system (principal); C79.51 Secondary malignant neoplasm of bone; C34.11 Malignant neoplasm of upper lobe, right bronchus or lung; S32.041A Stable burst fracture of fourth lumbar vertebra, initial encounter for closed fracture; X58.XXXA Exposure to other specified factors, initial encounter; G82.20 Paraplegia, unspecified; R33.9 Retention of urine, unspecified; R23.8 Other skin changes; F17.200 Nicotine dependence, unspecified, uncomplicated; Z79.82 Long term (current) use of aspirin
CPT/HCPCS: 36415; 51702; 71260; 72132; 80053; 83605; 83690; 83735; 85025; 85651; 87040; 87070; 87077; 87181; 87205; 96361; 96365; 96366; 96367; 96375; 96376; 99285; J1170; J3370; Q9967